=== PATIENT | female | born 1995 | race Caucasian/White ===

== ENCOUNTER 2024-07-25 09:43 | Observation (INO) ==
--- NOTE | 2024-07-25 09:58 | Emergency Department Note ---
Impression & Plan Transaminitis ADMIT ED Provider Note HPI: History obtained from patient. The patient is a 28-year-old female who presents the emergency department with a chief complaint of upper abdominal pain with nausea and vomiting that began at about 8 PM last night. Patient states she went out to a restaurant for dinner last night and shortly thereafter developed the symptoms. She states the pain is mostly in the epigastric and right upper quadrant area. Patient states he had multiple episodes of vomiting overnight and she was concerned about the possibility of a "gallbladder attack". On arrival here to the ED the patient is mildly tachycardic but otherwise hemodynamically stable, she appears to be in no acute distress on my initial assessment she is saturating well on room air. Patient states she does have right upper quadrant pain on arrival. ROS: - Per HPI Differential Diagnosis: Acute cholecystitis, choledocholithiasis, acute gastritis, acute pancreatitis, acute appendicitis, viral gastroenteritis, amongst other potential pathologies. *Outpatient medications and allergy history reviewed. PE: General: Alert HEENT: Normocephalic, trachea midline Eyes: Extraocular eye movement is intact, no scleral erythema Pulmonary: Clear to auscultation bilaterally, no wheezing Cardio: Regular rate and rhythm GI: Abdomen is soft to palpation : No suprapubic tenderness MSK: No evidence of trauma or malformation of the extremities, no edema Skin: No evidence of rash Neuro: Alert, no focal deficits Psychiatric: Cooperative INDEPENDENT INTERPRETATIONS: monitoring manager: (As interpreted by myself): - An order was placed for continuous cardiac monitoring - Patient was noted to be in sinus rhythm with a rate of 90 Interventions provided in ED: -IV morphine, IV Zofran, IV fluid bolus, IV Zosyn Medical Decision Making: IV was established and lab work obtained, patient was placed on media monitor. Lab work shows no leukocytosis, hemoglobin is normal, platelet count is normal, CMP does not show any evidence of any critical electrolyte abnormalities however there is a significant transaminitis with an elevated bilirubin at 3.3. CT imaging of the abdomen pelvis is suggestive of possible acute cholecystitis although recommendation was made for follow-up ultrasound imaging. No biliary ductal dilatation is noted on CT. I discussed the patient's presentation and CT imaging results with on-call general surgery, Abigail Damon PA-C, and recommendation was made for admission to the medicine service for further workup of transaminitis including MRCP and general surgery will be on consult. Case was then discussed with the on-call midlevel provider for the [facility] service, Karis Orona PA-C, and the patient was placed for admission to the [facility] service pending the results of MRCP. MRCP was obtained here in the ED and did not show any evidence of any obvious obstruction. Patient was therefore formally admitted to the medicine service at this time with general surgery consultation for further care. Patient remained stable while here in the ED, pain was improved following IV morphine and IV Zofran, she was in agreement to this plan and the patient was placed for admission in stable condition. Consultants/Discussions held with other healthcare providers: -General Surgery, Dr. Neyda Prabhakar -Hospitalist, Dr. Proctor Disposition discussion held by myself with: -Patient and patient's sister at the bedside Diagnosis: 1. Transaminitis, acute 2. Abdominal pain, acute 3. Hyperbilirubinemia, acute 4. Nausea and vomiting, acute Disposition: Admission Trae Banks DO Emergency Medicine Past Med/Surg History Problem List (Updated 07/25/24 @ 16:21 by Trae Banks DO) Transaminitis (Acute) Cholelithiasis Elevated LFTs Gallstones Constipation Encounter for pre-operative examination Medical History Anal fissure no surgical intervention History of Chiari malformation (~2015) Surgical History History of colonoscopy History of section x2 (10/2017, 08/2020) History of craniotomy (~2015) [facility] in 2016. Family History Other No family history of adverse response to anesthesia Social History Smoking Status: Current every day smoker Tobacco Type: E-cigarettes / Vaping Second Hand Exposure: No; Do You Dip or Chew Tobacco: No; Hx Alcohol Use: Yes Hx Substance Use: No Preferred Language: [place]an Communication Ability: Effective Sap Bi Developer Required: No Beliefs That Will Affect Care: None Current Living Situation: Spouse and Family Feels Safe at Home: Yes Assistive Devices: Contacts and Glasses Allergies Allergies Allergy/AdvReac Type Severity Reaction Status Date / Time No Known Allergies Allergy Verified 07/25/24 12:49 Home Meds Home Medications Medication Instructions Recorded Confirmed cholecalciferol (vitamin D3) 50 50 mcg PO DAILY 07/25/24 07/25/24 mcg (2,000 unit) tablet (Vitamin D3) magnesium glycinate 100 mg PO HS 07/25/24 07/25/24 vitamin K2 40 mcg tablet 40 mcg PO DAILY 07/25/24 07/25/24 Results & Data (ED) Vital Signs Vital Signs - 24 hr 07/25/24 09:45 07/25/24 10:20 07/25/24 10:21 Temperature 36.5 C Temperature Source Oral Pulse Rate 115 H Pulse Rate [Apical] 89 Pulse Rate from SpO2 Sensor Pulse Rhythm Regular Pulse Strength Normal Respiratory Rate 18 17 Respiratory Effort / Characteristics Non-Labored Respiratory Depth Normal Normal Respiratory Pattern Regular Blood Pressure 121/82 Blood Pressure [Left Arm] 119/94 Blood Pressure Mean 95 Blood Pressure Mean [Left Arm] 102 Blood Pressure Position Sitting Pulse Oximetry 99 98 99 Oxygen Delivery Method Room Air Room Air Room Air Sepsis Recent Fever Within 48 Hours Yes Sepsis New/Unexplained Change in Mental Status N/A Sepsis Action Taken by Nursing No Action Required 07/25/24 10:27 07/25/24 11:30 07/25/24 12:00 Temperature Temperature Source Pulse Rate 95 H Pulse Rate [Apical] Pulse Rate from SpO2 Sensor 88 94 H Pulse Rhythm Pulse Strength Respiratory Rate 18 Respiratory Effort / Characteristics Respiratory Depth Respiratory Pattern Blood Pressure 120/87 125/90 Blood Pressure [Left Arm] Blood Pressure Mean 98 97 Blood Pressure Mean [Left Arm] Blood Pressure Position Pulse Oximetry 100 100 Oxygen Delivery Method Sepsis Recent Fever Within 48 Hours Sepsis New/Unexplained Change in Mental Status Sepsis Action Taken by Nursing 07/25/24 13:53 07/25/24 14:25 07/25/24 14:30 Temperature Temperature Source Pulse Rate 92 H 82 87 Pulse Rate [Apical] Pulse Rate from SpO2 Sensor Pulse Rhythm Pulse Strength Respiratory Rate 27 H 22 Respiratory Effort / Characteristics Respiratory Depth Respiratory Pattern Blood Pressure 136/103 H 114/87 Blood Pressure [Left Arm] Blood Pressure Mean 116 91 Blood Pressure Mean [Left Arm] Blood Pressure Position Pulse Oximetry 99 99 Oxygen Delivery Method Sepsis Recent Fever Within 48 Hours Sepsis New/Unexplained Change in Mental Status Sepsis Action Taken by Nursing Laboratory Data 07/25/24 10:01 07/25/24 10:01 Lab Results 07/25/24 07/25/24 Range/Units 10:01 11:25 WBC 6.40 (4.8-10.8) K/ul RBC 5.26 (4.20-5.40) M/uL Hgb 15.3 (12.0-16.0) g/dl Hct 44.8 (37.0-47.0) % MCV 85.2 (80.0-100.0) fL MCH 29.1 (25.0-34.0) pg MCHC 34.2 (32.0-36.0) g/dL RDW Std Deviation 37.2 (36.4-46.3) fL RDW Coeff of Xavier 12.1 (11.5-14.5) % Plt Count 286 (130-400) K/uL MPV 9.8 (9.4-12.4) fL Immature Gran % (Auto) 0.3 % Neut % (Auto) 78.7 % Lymph % (Auto) 13.3 % [place] % (Auto) 7.2 % Eos % (Auto) 0.2 % Baso % (Auto) 0.3 % Neut # (Auto) 5.04 (1.40-6.50) K/uL Lymph # (Auto) 0.85 L (1.20-3.40) K/uL [place] # (Auto) 0.46 (0.11-0.59) K/uL Eos # (Auto) 0.01 (0.00-0.50) K/uL Baso # (Auto) 0.02 (0.00-0.20) K/uL Immature Gran # (Auto) 0.02 (0.01-0.20) K/uL Sodium 138 (136-145) mmol/L Potassium 3.7 (3.5-5.1) mmol/L Chloride 102 (98-107) mmol/L Carbon Dioxide 31 (21-32) mmol/L Anion Gap 5 (3-11) BUN 12 (6-23) mg/dl Creatinine 0.84 (0.6-1.2) mg/dl Est Cr Clr Drug Dosing 108.8 ml/min eGFR 96.41 BUN/Creatinine Ratio 14.3 (10-20) Glucose 97 (70-99(Fasting)) mg/dl Calcium 9.6 (8.6-10.3) mg/dl Magnesium 2.1 (1.7-2.4) mg/dl Total Bilirubin 3.3 H (0.2-1.0) mg/dl AST 1550 H (13-39) U/L ALT 1213 H (7-52) U/L Alkaline Phosphatase 134 H (34-104) U/L Total Protein 7.5 (6.0-8.3) gm/dl Albumin 4.8 (3.4-5.0) gm/dl Globulin 2.7 (2.5-4.0) gm/dl Albumin/Globulin Ratio 1.8 (0.9-2) Lipase 13 (11-82) U/L HCG, Qual Negative (Negative) Urine Color Dark Yellow Urine Appearance Clear (Clear) Urine pH 7.5 (4.5-7.5) Ur Specific [place] > 1.045 H (1.000-1.030) Urine Protein Negative (Negative) Urine Glucose (UA) Negative (Negative) Urine Ketones Negative (Negative) Urine Blood Negative (Negative) Urine Nitrite Negative (Negative) Urine Bilirubin Negative (Negative) Urine Urobilinogen Positive H (Negative) Ur Leukocyte Esterase Negative (Negative) Administered Medications Sodium Chloride (Nss) 1,000 mls @ 125 mls/hr IV .Q8H ANALIA Stop: 07/26/24 14:44 Last Admin: 07/25/24 14:55 Dose: 125 mls/hr Documented By: JACKY Discontinued Medications Sodium Chloride (Nss) 1,000 mls @ 999 mls/hr IV .Q1H1M STA Stop: 07/25/24 10:51 Last Infusion: 07/25/24 11:12 Dose: Infused Documented By: Admin: 07/25/24 10:08 Dose: 999 mls/hr Documented By: JACKY Piperacillin Sod/Tazobactam Sod (Zosyn) 4.5 gm in 100 mls @ 200 mls/hr IV NOW ONE; Protocol Stop: 07/25/24 12:21 Last Admin: 07/25/24 14:43 Dose: Not Given Documented By: JACKY Ioversol (Optiray 320 100ml) 94 ml IV ONCE ONE Stop: 07/25/24 11:11 Last Admin: 07/25/24 11:10 Dose: 94 ml Documented By: SYDNI Morphine Sulfate (Morphine Sulfate 4 Mg/Ml 1 Ml Carp\\Vial) 4 mg IV NOW STA Stop: 07/25/24 09:56 Last Admin: 07/25/24 10:09 Dose: 4 mg Documented By: JACKY Morphine Sulfate (Morphine Sulfate 4 Mg/Ml 1 Ml Carp\\Vial) 4 mg IV NOW STA Stop: 07/25/24 14:04 Last Admin: 07/25/24 14:52 Dose: 4 mg Documented By: JACKY Ondansetron HCl (Ondansetron Inj 2 Mg/Ml 2 Ml Vial) 4 mg IV NOW STA Stop: 07/25/24 09:56 Last Admin: 07/25/24 10:09 Dose: 4 mg Documented By: JACKY Imaging Data Radiologist's Impression: Abdomen/Pelvis CT 07/25/24 09:55 CT OF THE ABDOMEN AND PELVIS WITH CONTRAST CLINICAL HISTORY: RUQ PAIN, N/V COMPARISON STUDY: Renal ultrasound January 12, 2016. TECHNIQUE: Following IV administration of 94 mL of Optiray, axial images of the abdomen and pelvis were obtained from the lung bases to the proximal femurs. Images were reviewed in the axial, sagittal, and coronal planes. IV contrast was administered without complication. Automated exposure control was utilized for the study. A dose lowering technique was utilized adhering to the principles of ALARA. CT DOSE: 1163.09 mGy.cm FINDINGS: Lung bases are unremarkable. There is no pneumatosis, free air or portal venous gas. There are no hepatic lesions. There is no biliary or pancreatic ductal dilatation. The gallbladder is mildly distended. There is no pericholecystic infiltration. There are small gallstones within the gallbladder. The adrenal glands, spleen and pancreas are normal. There is no hydronephrosis. There are small radiodensities within the bilateral renal calyces. There are no ureteral calculi. There is no evidence for a bowel obstruction. The caliber and wall thickness of small and large bowel are normal. The appendix is normal. There is a dominant follicle within the left ovary. Major vasculature is patent. IMPRESSION: 1. A few tiny gallstones and mildly distended gallbladder. No pericholecystic infiltration. Right upper quadrant ultrasound is recommended to exclude acute cholecystitis. 2. Normal appendix. No bowel obstruction. No bowel wall thickening. 3. Tiny radiodensities within the bilateral renal calyces which favor nonobstructing calculi. Excreted contrast could appear similar. No ureteral calculi. No hydronephrosis. ACT 112: Negative or not required by law. Electronically signed by: Abdirashid Mullen M.D. 07/25/2024 11:41 AM Cholangiopancreatography MRI 07/25/24 11:52 MRCP CLINICAL HISTORY: Transaminitis. TECHNIQUE: Utilizing a 1.5 Anjali magnet and dedicated coil, multiplanar, multiecho imaging of the upper abdomen was performed utilizing heavily T2 weighted pulsing sequences without IV contrast. COMPARISON STUDY: Right upper quadrant ultrasound and CT of the abdomen and pelvis performed earlier today. FINDINGS: There is no intra or extrahepatic biliary ductal dilatation. The common bile duct measures 5 mm in caliber. No common bile duct calculi are identified. There are numerous gallstones within the gallbladder. The gallbladder is mildly distended. There is no gallbladder wall thickening or pericholecystic fluid. Caliber of the pancreatic duct is normal. There is no peripancreatic fluid or stranding. No hepatic lesions are identified on unenhanced exam. Spleen, adrenal glands and kidneys are unremarkable. There is no hydronephrosis. IMPRESSION: 1. No biliary ductal dilatation. No common bile duct calculi. 2. Numerous gallstones within the gallbladder. Mild gallbladder distention. No gallbladder wall thickening or pericholecystic stranding to strongly suggest acute cholecystitis. 3. No MRI evidence for pancreatitis. ACT 112: Negative or not required by law. Electronically signed by: Abdirashid Mullen M.D. 07/25/2024 1:57 PM Liver Ultrasound 07/25/24 11:53 US liver CLINICAL HISTORY: eval cholecystitis,elevated LFTs right upper quadrant pain; known gallstones COMPARISON STUDY: CT of the abdomen and pelvis same date FINDINGS: There are no pancreatic lesion is depicted. The liver measures 17.4 cm in cephalocaudal dimension. There are no focal liver lesions identified. There is no ascites. There is hepatopedal flow in the portal vein. The IVC is patent. There are numerous stones identified within the gallbladder. The gallbladder is not distended. There is no gallbladder wall thickening or pericholecystic fluid. There is no sonographic Bowman's sign reported. The common bile duct measures 4 mm. The right kidney is sonographically normal measuring 12.4 cm in long axis. There is no hydronephrosis. IMPRESSION: Cholelithiasis; no secondary findings that are strongly suggestive of cholecystitis. ACT 112: Negative or not required by law. Electronically signed by: Fani Esteban M.D. 07/25/2024 12:43 PM Discharge Plan Visit Data Chief Complaint: Abdominal Pain Stated Complaint: SHARP UPPER LT QUADRANT PAIN, NAUSEA, BACK TIGHT ED Provider: Trae Banks Discharge Problem: Transaminitis Forms Stand Alone Forms: [facility] Prescriptions Prescriptions: No Action cholecalciferol (vitamin D3) [Vitamin D3] 50 mcg (2,000 unit) Tablet 50 mcg PO DAILY vitamin K2 40 mcg Tablet 40 mcg PO DAILY magnesium glycinate 100 mg magnesium Capsule 100 mg PO HS Referrals Referrals: Art Hua [Primary Care Provider] -
[2024-07-25] MEDS: SODIUM CHLORIDE 0.9% 1,000 ML IV STA (10:08)
[2024-07-25] MEDS: ONDANSETRON INJ 2 MG/ML 2 ML VIAL IV STA (10:09)
[2024-07-25] MEDS: MoRPHine SULFATE 4 MG/ML 1 ML CARP\\VIAL IV STA ×2 (10:09→14:52)
[2024-07-25 10:27] LABS: Basophils # (auto) 0.02 K/uL (0.00-0.20); Basophils % (auto) 0.3 %; Eosinophils # (auto) 0.01 K/uL (0.00-0.50); Eosinophils % (auto) 0.2 %; Hematocrit (blood only) 44.8 % (37.0-47.0); Hemoglobin 15.3 g/dl (12.0-16.0); Immature Granulocytes # (auto) 0.02 K/uL (0.01-0.20); Immature Granulocytes % (auto) 0.3 %; Lymphocytes # (auto) 0.85 K/uL (1.20-3.40); Lymphocytes % (auto) 13.3 %; Mean Corpuscular Hemoglobin 29.1 pg (25.0-34.0); Mean Corpuscular Hgb Conc 34.2 g/dL (32.0-36.0); Mean Corpuscular Volume 85.2 fL (80.0-100.0); Mean Platelet Volume 9.8 fL (9.4-12.4); Monocytes # (auto) 0.46 K/uL (0.11-0.59); Monocytes % (auto) 7.2 %; Neutrophils # (auto) 5.04 K/uL (1.40-6.50); Neutrophils % (auto) 78.7 %; Platelet Count 286 K/uL (130-400); RDW Coefficient of Variation 12.1 % (11.5-14.5); RDW Standard Deviation 37.2 fL (36.4-46.3); Red Blood Count 5.26 M/uL (4.20-5.40)
[2024-07-25 10:42] LABS: Pregnancy Test, Serum Negative (Negative)
[2024-07-25 10:58] LABS: BUN Creatinine Ratio 14.3 (10-20); Calcium 9.6 mg/dl (8.6-10.3); Creatinine Clr Calc Pharmacy 108.8 ml/min; Potassium 3.7 mmol/L (3.5-5.1)
[2024-07-25] MEDS: OPTIRAY 320 100ml IV ONE (11:10)
[2024-07-25 11:19] LABS: Albumin Globulin Ratio 1.8 (0.9-2); Albumin Level 4.8 gm/dl (3.4-5.0); Bilirubin,Total 3.3 mg/dl (0.2-1.0); Globulin 2.7 gm/dl (2.5-4.0); Total Protein 7.5 gm/dl (6.0-8.3)
--- NOTE | 2024-07-25 11:43 | CT Scan Report ---
CT OF THE ABDOMEN AND PELVIS WITH CONTRAST CLINICAL HISTORY: RUQ PAIN, N/V COMPARISON STUDY: Renal ultrasound January 12, 2016. TECHNIQUE: Following IV administration of 94 mL of Optiray, axial images of the abdomen and pelvis we re obtained from the lung bases to the proximal femurs. Images were reviewed in the axial, sagittal, and coronal planes. IV contrast was administered without complication. Automated exposure control wa s utilized for the study. A dose lowering technique was utilized adhering to the principles of ALARA . CT DOSE: 1163.09 mGy.cm FINDINGS: Lung bases are unremarkable. There is no pneumatosis, free air or portal venous gas. There are no hepatic lesions. There is no biliary or pancreatic ductal dilatation. The gallbladder is mildl y distended. There is no pericholecystic infiltration. There are small gallstones within the gallblad esme. The adrenal glands, spleen and pancreas are normal. There is no hydronephrosis. There are small radiodensities within the bilateral renal calyces. There are no ureteral calculi. There is no evidenc e for a bowel obstruction. The caliber and wall thickness of small and large bowel are normal. The ap pendix is normal. There is a dominant follicle within the left ovary. Major vasculature is patent. IMPRESSION: 1. A few tiny gallstones and mildly distended gallbladder. No pericholecystic infiltration. Right upp er quadrant ultrasound is recommended to exclude acute cholecystitis. 2. Normal appendix. No bowel obstruction. No bowel wall thickening. 3. Tiny radiodensities within the bilateral renal calyces which favor nonobstructing calculi. Excrete d contrast could appear similar. No ureteral calculi. No hydronephrosis. ACT 112: Negative or not required by law. Electronically signed by: Abdirashid Mullen M.D. 07/25/2024 11:41 AM
[2024-07-25 11:54] LABS: Appearance Urine Clear (Clear); Bilirubin Urine Negative (Negative); Blood Urine Negative (Negative); Color Urine Dark Yellow; Glucose Urine UA Negative (Negative); Ketones Urine Negative (Negative); Leukocyte Esterase Urine Negative (Negative); Nitrite Urine Negative (Negative); Protein Urine Negative (Negative); Specific Gravity Urine > 1.045 (1.000-1.030); Urobilinogen Urine Positive (Negative); pH Urine 7.5 (4.5-7.5)
--- NOTE | 2024-07-25 12:17 | Surgery Consultation ---
Date of Consultation July 25, 2024 Assessment & Plan (1) Gallstones: This is a 28y F with PMH of x2 who presents to the [facility] ED on 07/25/24 with complaints of epigastric pain, nausea/vomiting, sweats. The patient states she has had several attacks similar to this (upwards of 7 times) over the last year since stopping Wegovy. She does experience these attacks it seems after eating fatty greasy foods such as chik sagrario, flakita cheese dip. This attack happened yesterday after she drove her father to an appointment in [place] and upon her return had dinner at [facility]. She promptly experienced the symptoms as above. Because she drove all day she did not want to then drive all the way to the ER for evaluation. She woke up this AM and got her kids ready for school and then came into the ER. She feels better, but still having discomfort and bloating. Her vomiting has subsided. In the ER she underwent a CT a/p that showed a few tiny gallstones and mildly distended gallbladder. No pericholecystic infiltration. Today in the ER blood work shows WBC 6, Hbg 15. with elevated liver enzymes of Tb: 3.3, AST 1550, ALT 1213, AlkP 134, lipase 13. Vital signs are stable. On exam patient is resting in no acute distress. Abdomen soft with mild discomfort at this time to palpation. There is concern for choledocholithiasis and it must be ruled out given the elevation in her liver enzymes. A RUQ US an MRCP have been ordered for further evaluation. If MRCP is positive then she will need to be transferred to a center where they have GI services available for ERCP. If it is negative than can consider admission under medicine with trending of LFTs and can consider cholecystectomy tomorrow if they are downtrending. We will follow. (2) Elevated LFTs: Supervising Physician Co-Signing Physician Notes I saw and examined this patient with the surgical PA in the ED. MRCP was performed and is (-). We will discuss potential surgical options with the patient but f/u am labs to trend LFTs. History of Present Illness History of Present Illness This is a 28y F with PMH of x2 who presents to the [facility] ED on 07/25/24 with complaints of epigastric pain, nausea/vomiting, sweats. The patient states she has had several attacks similar to this (upwards of 7 times) over the last year since stopping Wegovy. She does experience these attacks it seems after eating fatty greasy foods such as chik sagrario, flakita cheese dip. This attack happened yesterday after she drove her father to an appointment in [place] and upon her return had dinner at [facility]. She promptly experienced the symptoms as above. Because she drove all day she did not want to then drive all the way to the ER for evaluation. She woke up this AM and got her kids ready for school and then came into the ER. She feels better, but still having discomfort and bloating. Her vomiting has subsided. In the ER she underwent a CT a/p that showed a few tiny gallstones and mildly distended gallbladder. No pericholecystic infiltration. Right upper quadrant ultrasound is recommended to exclude acute cholecystitis. The patient states her pain is epigastric and radiates to the back and feels like a cinching sensation. Outside of c-sections she has no other abdominal surgical history. Allergies Allergy/AdvReac Type Severity Reaction Status Date / Time No Known Allergies Allergy Verified 07/25/24 12:49 Home Medications Medication Instructions Recorded Confirmed Type cholecalciferol (vitamin D3) 50 50 mcg PO DAILY 07/25/24 07/25/24 History mcg (2,000 unit) tablet (Vitamin D3) magnesium glycinate 100 mg PO HS 07/25/24 07/25/24 History vitamin K2 40 mcg tablet 40 mcg PO DAILY 07/25/24 07/25/24 History Patient History Medical History Anal fissure no surgical intervention History of Chiari malformation (~2015) Surgical History History of colonoscopy History of section x2 (10/2017, 08/2020) History of craniotomy (~2015) [facility] in 2015. Family History Other No family history of adverse response to anesthesia Social History Smoking Status: Current every day smoker Tobacco Type: E-cigarettes / Vaping Second Hand Exposure: No; Do You Dip or Chew Tobacco: No; Hx Alcohol Use: Yes Hx Substance Use: No Preferred Language: Belizean Communication Ability: Effective Mold Mover Required: No Beliefs That Will Affect Care: None Current Living Situation: Spouse and Family Feels Safe at Home: Yes Assistive Devices: Contacts and Glasses Review of Systems Constitutional: + sweats and + problem reported (clammy) Respiratory: no dyspnea Cardiovascular: no chest pain Gastrointestinal: + abdominal pain (epigastric), + bloatin g, + nausea and + vomiting Musculoskeletal: to the back Physical Exam Physical Exam: awake/alert, no distress Constitutional: well developed and well nourished; no acute distress Respiratory: normal respiratory effort Gastrointestinal (Abdomen): Inspection/Auscultation: + abdomen distended Percussion/Palpation: + abdomen tender (not overly tender to palpation; mild discomfort in upper abd) and abdomen soft Results & Data Vital Signs (Past 12 Hours) Vital Signs Temp Pulse Pulse Resp BP BP Pulse Ox 07/25/24 10:27 95 H 07/25/24 10:21 99 07/25/24 10:20 89 17 119/94 98 07/25/24 09:45 97.7 F 115 H 18 121/82 99 O2 Del Method 07/25/24 10:27 07/25/24 10:21 Room Air 07/25/24 10:20 Room Air 07/25/24 09:45 Room Air Diagnostic Findings CT OF THE ABDOMEN AND PELVIS WITH CONTRAST CLINICAL HISTORY: RUQ PAIN, N/V COMPARISON STUDY: Renal ultrasound January 12, 2016. TECHNIQUE: Following IV administration of 94 mL of Optiray, axial images of the abdomen and pelvis were obtained from the lung bases to the proximal femurs. Images were reviewed in the axial, sagittal, and coronal planes. IV contrast was administered without complication. Automated exposure control was utilized for the study. A dose lowering technique was utilized adhering to the principles of ALARA. CT DOSE: 1163.09 mGy.cm FINDINGS: Lung bases are unremarkable. There is no pneumatosis, free air or portal venous gas. There are no hepatic lesions. There is no biliary or pancreatic ductal dilatation. The gallbladder is mildly distended. There is no pericholecystic infiltration. There are small gallstones within the gallbladder. The adrenal glands, spleen and pancreas are normal. There is no hydronephrosis. There are small radiodensities within the bilateral renal calyces. There are no ureteral calculi. There is no evidence for a bowel obstruction. The caliber and wall thickness of small and large bowel are normal. The appendix is normal. There is a dominant follicle within the left ovary. Major vasculature is patent. IMPRESSION: 1. A few tiny gallstones and mildly distended gallbladder. No pericholecystic infiltration. Right upper quadrant ultrasound is recommended to exclude acute cholecystitis. 2. Normal appendix. No bowel obstruction. No bowel wall thickening. 3. Tiny radiodensities within the bilateral renal calyces which favor nonobstructing calculi. Excreted contrast could appear similar. No ureteral calculi. No hydronephrosis. ACT 112: Negative or not required by law. Electronically signed by: Abdirashid Mullen M.D. 07/25/2024 11:41 AM PG Care Time/CCT Total # of Minutes Spent Total Time Spent with Patient: Total time spent is greater than 50% in coordination of care (as documented) at patient's floor/unit and/or counseling patient: Coding Level of Care Code 35375 OFFICE CONSULT LVL M Diagnoses Gallstones K80.20 Elevated LFTs R79.89
--- NOTE | 2024-07-25 12:44 | Ultrasound Report ---
US liver CLINICAL HISTORY: eval cholecystitis,elevated LFTs right upper quadrant pain; known gallstones COMPARISON STUDY: CT of the abdomen and pelvis same date FINDINGS: There are no pancreatic lesion is depicted. The liver measures 17.4 cm in cephalocaudal dimension. There are no focal liver lesions identified. T here is no ascites. There is hepatopedal flow in the portal vein. The IVC is patent. There are numerous stones identified within the gallbladder. The gallbladder is not distended. There is no gallbladder wall thickening or pericholecystic fluid. There is no sonographic Bowman's sign rep orted. The common bile duct measures 4 mm. The right kidney is sonographically normal measuring 12.4 cm in long axis. There is no hydronephrosis . IMPRESSION: Cholelithiasis; no secondary findings that are strongly suggestive of cholecystitis. ACT 112: Negative or not required by law. Electronically signed by: Fani Esteban M.D. 07/25/2024 12:43 PM
--- NOTE | 2024-07-25 13:58 | Magnetic Resonance Report ---
MRCP CLINICAL HISTORY: Transaminitis. TECHNIQUE: Utilizing a 1.5 Anjali magnet and dedicated coil, multiplanar, multiecho imaging of the [facility] abdomen was performed utilizing heavily T2 weighted pulsing sequences without IV contrast. COMPARISON STUDY: Right upper quadrant ultrasound and CT of the abdomen and pelvis performed earlier today. FINDINGS: There is no intra or extrahepatic biliary ductal dilatation. The common bile duct measures 5 mm in caliber. No common bile duct calculi are identified. There are numerous gallstones within the gallbladder. The gallbladder is mildly distended. There is no gallbladder wall thickening or pericho lecystic fluid. Caliber of the pancreatic duct is normal. There is no peripancreatic fluid or strandi ng. No hepatic lesions are identified on unenhanced exam. Spleen, adrenal glands and kidneys are unre markable. There is no hydronephrosis. IMPRESSION: 1. No biliary ductal dilatation. No common bile duct calculi. 2. Numerous gallstones within the gallbladder. Mild gallbladder distention. No gallbladder wall thick ening or pericholecystic stranding to strongly suggest acute cholecystitis. 3. No MRI evidence for pancreatitis. ACT 112: Negative or not required by law. Electronically signed by: Abdirashid Mullen M.D. 07/25/2024 1:57 PM
--- NOTE | 2024-07-25 14:30 | History & Physical Report ---
<Statement entered by Felix Nolasco, DO - 07/25/24 15:03> I have seen and examined the patient and have discussed the case with the advance practice provider. I have reviewed the advanced practitioner's documentation, and I agree with, and take responsibility for that plan of care. Patient reports feeling significantly improved compared to last night or even earlier today. Still feels though somewhat inflamed in her abdomen. Interestingly, patient has recently used Wegovy, known to cause cholelithiasis as an adverse effect. Abdomen soft, minimal right upper quadrant tenderness, no guarding, no rigidity, no Bowman's Discussed plan of care as outlined below I spent a total of 15 minutes coordinating, documenting, and providing care for this patient excluding time spent by another provider/QHP. Date of Service July 25, 2024 Assessment & Plan (1) Cholelithiasis: (2) Elevated LFTs: Plan: This is a 28 yr old otherwise healthy female presenting with RUQ Abd pain/fullness that is radiating to her back that started 1 day ago after eating a fatty meal. Had similar episodes 7 x this past year. --MRCP:No biliary ductal dilatation. No common bile duct calculi.2. Numerous gallstones within the gallbladder. Mild gallbladder distention. No gallbladder wall thickening or pericholecystic stranding to strongly suggest acute cholecystitis. 3. No MRI evidence for pancreatitis. --US: Cholelithiasis; no secondary findings that are strongly suggestive of cholecystitis. AST 1550 U/L, ALT 1213 U/L, Alk Phos 134 U/L and total bili 3.3 No evidence of obstruction on MRCP, possible passed stone/sludge admit to medical Discussed case with General surgery Abigail Damon, if LFT downtrending likely plan cholecystectomy tomorrow Empiric IV antibiotics with Zosyn, IVF 125cc/hr Keep NPO for now IV toradol mild pain, IV Dilaudid moderate pain If LFTS not improving by tomorrow would recommend further work up with acute hep panel and r/o other etiology of transaminitis, but this clinically appears consistent with gallbladder dysfunction/cholelithiasis DVT ppx: encourage ambulation FULL CODE PCP: Marleen Lang PA-C Dispo: admit I spent a total of 60 minutes coordinating, documenting and providing care for this patient excluding time spent in the performance of separately billed services or time spent by another provider/QHP. Pt was seen and examined in collaboration with Dr. Nolasco, please see addendum History of Present Illness Chief Complaint: Abdominal pain x 1 day. Primary Care Provider: Art Hua This is a Healthy 28 yr old F who has no significant PMH who presents to ED with epigastic/RUQ pain x 1 day. 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 Shortly after eating her meal she developed epigastric pain radiating to her back, RUQ fullness, nausea and vomiting. She didn't come to the ER last night due to driving all day so she presented this morning. She reports this is her 7th episode in the last year. She previously has been on wegovy and lost a ton of weight. After stopping Wegovy she developed this symptoms along with palpitations and shaking. She continues to feel RUQ fullness and pressure, but feels her pain has improved. SHe is passing gas, but she has not moved her bowels in a few days. Initially she thought maybe she was constipated so she tried drinking milk of mag walking through [employer] last night. She then thought maybe she had the stomach flu. In ED Patient's lab work revealed a significant transaminitis with an AST of [id number] and ALT of 1213, total bili of 3.3 and alk phos of 134. CT scan of abdomen pelvis revealed gallstones but no definitive gallbladder wall thickening or pericholecystic fluid. She underwent right upper quadrant ultrasound and MRCP which was negative for CBD stone but did reveal several gallstones. Allergies Allergy/AdvReac Type Severity Reaction Status Date / Time No Known Allergies Allergy Verified 07/25/24 12:49 Home Medications Medication Instructions Recorded Confirmed Type cholecalciferol (vitamin D3) 50 50 mcg PO DAILY 07/25/24 07/25/24 History mcg (2,000 unit) tablet (Vitamin D3) magnesium glycinate 100 mg PO HS 07/25/24 07/25/24 History vitamin K2 40 mcg tablet 40 mcg PO DAILY 07/25/24 07/25/24 History Past Med/Surg History Problem List (Updated 07/25/24 @ 14:44 by Angie Orona PA-C) Cholelithiasis Elevated LFTs Gallstones Constipation Encounter for pre-operative examination Medical History Anal fissure no surgical intervention History of Chiari malformation (~2015) Surgical History History of colonoscopy History of section x2 (10/2017, 08/2020) History of craniotomy (~2015) [facility] in 2016. Family History Other No family history of adverse response to anesthesia Social History Smoking Status: Current every day smoker Tobacco Type: E-cigarettes / Vaping Second Hand Exposure: No; Do You Dip or Chew Tobacco: No; Hx Alcohol Use: Yes Hx Substance Use: No Preferred Language: Polish Communication Ability: Effective Tribal Delegate Required: No Beliefs That Will Affect Care: None Current Living Situation: Spouse and Family Feels Safe at Home: Yes Assistive Devices: Contacts and Glasses Review of Systems Review of Systems: All systems reviewed & are unremarkable except as noted in HPI & below Physical Exam Physical Exam: Constitutional: WD/WN, vitals as above, NAD, sitting up in bed, pleasant, conversing easily Head: Normocephalic, Atraumatic Eyes: PERRL, conjunctivae normal, anicteric sclerae ENMT: external ear and nose normal, oropharynx normal Neck: trachea midline, no thyromegaly normal visual inspection Respiratory: normal respiratory effort, lungs clear to auscultation, no wheeze, rales, rhonchi. Normal insp/exp effort, no accessory muscle use Cardiovascular: RRR, no murmur, no edema Vessels: no JVD or carotid bruit Chest: normal inspection of chest Abdomen: normal bowel sounds, soft, TTP RUQ, no hepatosplenomegaly Musculoskeletal: AROM x 4 Skin: no rashes, warm and dry normal turgor Neurologic: no face palsy, no dysarthria CN's II-XI intact bilaterally and moves all extremities Psychiatric: A+Ox3, euthymic affect Lymphatic: no cervical or axillary lymphadenopathy : deferred Results & Data Results & Data Vital Signs (Past 12 Hours) Vital Signs Temp Pulse Pulse Resp BP BP Pulse Ox 07/25/24 14:25 82 07/25/24 12:00 125/90 100 07/25/24 11:30 18 120/87 100 07/25/24 10:27 95 H 07/25/24 10:21 99 07/25/24 10:20 89 17 119/94 98 07/25/24 09:45 36.5 C 115 H 18 121/82 99 O2 Del Method 07/25/24 14:25 07/25/24 12:00 07/25/24 11:30 07/25/24 10:27 07/25/24 10:21 Room Air 07/25/24 10:20 Room Air 07/25/24 09:45 Room Air Laboratory Results I have independently reviewed and interpreted patient's admitting labs including CBC, CMP, UA, Lipase, HCG Diagnostic Findings Abdomen/Pelvis CT 07/25/24 09:55 CT OF THE ABDOMEN AND PELVIS WITH CONTRAST CLINICAL HISTORY: RUQ PAIN, N/V COMPARISON STUDY: Renal ultrasound January 12, 2016. TECHNIQUE: Following IV administration of 94 mL of Optiray, axial images of the abdomen and pelvis were obtained from the lung bases to the proximal femurs. Images were reviewed in the axial, sagittal, and coronal planes. IV contrast was administered without complication. Automated exposure control was utilized for the study. A dose lowering technique was utilized adhering to the principles of ALARA. CT DOSE: 1163.09 mGy.cm FINDINGS: Lung bases are unremarkable. There is no pneumatosis, free air or portal venous gas. There are no hepatic lesions. There is no biliary or pancreatic ductal dilatation. The gallbladder is mildly distended. There is no pericholecystic infiltration. There are small gallstones within the gallbladder. The adrenal glands, spleen and pancreas are normal. There is no hydronephrosis. There are small radiodensities within the bilateral renal calyces. There are no ureteral calculi. There is no evidence for a bowel obstruction. The caliber and wall thickness of small and large bowel are normal. The appendix is normal. There is a dominant follicle within the left ovary. Major vasculature is patent. IMPRESSION: 1. A few tiny gallstones and mildly distended gallbladder. No pericholecystic infiltration. Right upper quadrant ultrasound is recommended to exclude acute cholecystitis. 2. Normal appendix. No bowel obstruction. No bowel wall thickening. 3. Tiny radiodensities within the bilateral renal calyces which favor nonobstructing calculi. Excreted contrast could appear similar. No ureteral calculi. No hydronephrosis. ACT 112: Negative or not required by law. Electronically signed by: Abdirashid Mullen M.D. 07/25/2024 11:41 AM Cholangiopancreatography MRI 07/25/24 11:52 MRCP CLINICAL HISTORY: Transaminitis. TECHNIQUE: Utilizing a 1.5 Anjali magnet and dedicated coil, multiplanar, multiecho imaging of the upper abdomen was performed utilizing heavily T2 weighted pulsing sequences without IV contrast. COMPARISON STUDY: Right upper quadrant ultrasound and CT of the abdomen and pelvis performed earlier today. FINDINGS: There is no intra or extrahepatic biliary ductal dilatation. The common bile duct measures 5 mm in caliber. No common bile duct calculi are identified. There are numerous gallstones within the gallbladder. The gallbladder is mildly distended. There is no gallbladder wall thickening or pericholecystic fluid. Caliber of the pancreatic duct is normal. There is no peripancreatic fluid or stranding. No hepatic lesions are identified on unenhanced exam. Spleen, adrenal glands and kidneys are unremarkable. There is no hydronephrosis. IMPRESSION: 1. No biliary ductal dilatation. No common bile duct calculi. 2. Numerous gallstones within the gallbladder. Mild gallbladder distention. No gallbladder wall thickening or pericholecystic stranding to strongly suggest acute cholecystitis. 3. No MRI evidence for pancreatitis. ACT 112: Negative or not required by law. Electronically signed by: Abdirashid Mullen M.D. 07/25/2024 1:57 PM Liver Ultrasound 07/25/24 11:53 US liver CLINICAL HISTORY: eval cholecystitis,elevated LFTs right upper quadrant pain; known gallstones COMPARISON STUDY: CT of the abdomen and pelvis same date FINDINGS: There are no pancreatic lesion is depicted. The liver measures 17.4 cm in cephalocaudal dimension. There are no focal liver lesions identified. There is no ascites. There is hepatopedal flow in the portal vein. The IVC is patent. There are numerous stones identified within the gallbladder. The gallbladder is not distended. There is no gallbladder wall thickening or pericholecystic fluid. There is no sonographic Bowman's sign reported. The common bile duct measures 4 mm. The right kidney is sonographically normal measuring 12.4 cm in long axis. There is no hydronephrosis. IMPRESSION: Cholelithiasis; no secondary findings that are strongly suggestive of cholecystitis. ACT 112: Negative or not required by law. Electronically signed by: Fani Esteban M.D. 07/25/2024 12:43 PM Medications Administered Medication List Discontinued Medications Sodium Chloride (Nss) 1,000 mls @ 999 mls/hr IV .Q1H1M STA Stop: 07/25/24 10:51 Last Infusion: 07/25/24 11:12 Dose: Infused Documented By: Admin: 07/25/24 10:08 Dose: 999 mls/hr Documented By: JACKY Ioversol (Optiray 320 100ml) 94 ml IV ONCE ONE Stop: 07/25/24 11:11 Last Admin: 07/25/24 11:10 Dose: 94 ml Documented By: SYDNI Morphine Sulfate (Morphine Sulfate 4 Mg/Ml 1 Ml Carp\Vial) 4 mg IV NOW STA Stop: 07/25/24 09:56 Last Admin: 07/25/24 10:09 Dose: 4 mg Documented By: JACKY Ondansetron HCl (Ondansetron Inj 2 Mg/Ml 2 Ml Vial) 4 mg IV NOW STA Stop: 07/25/24 09:56 Last Admin: 07/25/24 10:09 Dose: 4 mg Documented By: JACKY COVID- Results Results COVID-19 Adm Lab Results: RBC 5.26 M/uL (4.20-5.40) 07/25/24 WBC 6.40 K/ul (4.8-10.8) 07/25/24 Hgb 15.3 g/dl (12.0-16.0) 07/25/24 Hct 44.8 % (37.0-47.0) 07/25/24 Plt Count 286 K/uL (130-400) 07/25/24 Neutrophils (%) (Auto) 78.7 % 07/25/24 Lymphocytes (%) (Auto) 13.3 % 07/25/24 Monocytes # (Auto) 0.46 K/uL (0.11-0.59) 07/25/24 Eosinophils # (Auto) 0.01 K/uL (0.00-0.50) 07/25/24 Immature Granulocyte % (Auto) 0.3 % 07/25/24 Neutrophils # (Auto) 5.04 K/uL (1.40-6.50) 07/25/24 Lymphocytes # (Auto) 0.85 K/uL (1.20-3.40) L 07/25/24 Monocytes # (Auto) 0.46 K/uL (0.11-0.59) 07/25/24 Eosinophils # (Auto) 0.01 K/uL (0.00-0.50) 07/25/24 Basophils # (Auto) 0.02 K/uL (0.00-0.20) 07/25/24 Immature Granulocyte # (Auto) 0.02 K/uL (0.01-0.20) 5 Na 138 mmol/L (136-145) 07/25/24 K 3.7 mmol/L (3.5-5.1) 07/25/24 Cl 102 mmol/L (98-107) 07/25/24 CO2 31 mmol/L (21-32) 07/25/24 Anion Gap 5 (3-11) 07/25/24 BUN 12 mg/dl (6-23) 07/25/24 Creatinine 0.84 mg/dl (0.6-1.2) 07/25/24 BUN/Creatinine Ratio 14.3 (10-20) 07/25/24 Glucose Level 97 mg/dl (70-99(Fasting)) 07/25/24 Ca 9.6 mg/dl (8.6-10.3) 07/25/24 Total Bilirubin 3.3 mg/dl (0.2-1.0) H 07/25/24 AST/SGOT 1550 U/L (13-39) H 07/25/24 ALT/SGPT 1213 U/L (7-52) H 07/25/24 Alkaline Phosphatase 134 U/L (34-104) H 07/25/24 Total Protein 7.5 gm/dl (6.0-8.3) 07/25/24 Albumin 4.8 gm/dl (3.4-5.0) 07/25/24 Globulin 2.7 gm/dl (2.5-4.0) 07/25/24 Albumin/Globulin Ratio 1.8 (0.9-2) 07/25/24 Code Status & VTE Plan Code Status FULL CODE VTE Prophylaxis Plan VTE Prophylaxis will be ordered: No
[2024-07-25] MEDS: PIPERACILLIN/TAZOBACTAM 4.5 GM/100 ML BAG IV ONE (14:43)
[2024-07-25 14:52] LABS: Magnesium 2.1 mg/dl (1.7-2.4)
[2024-07-25] MEDS: SODIUM CHLORIDE 0.9% 1,000 ML IV SCH (14:55)
[2024-07-25] MEDS ORDERED: ACETAMINOPHEN 325 MG TAB PO PRN (17:54)
[2024-07-25] MEDS ORDERED: FAMOTIDINE 20 MG TAB PO PRN (17:54)
[2024-07-25] MEDS ORDERED: DOCUSATE SODIUM 100 MG CAP PO PRN (17:54)
[2024-07-25] MEDS: 4.5GM X1 IV STA (18:47)
[2024-07-25] MEDS ORDERED: MELATONIN 3 MG TAB PO PRN (21:00)
[2024-07-25] MEDS: KETOROLAC TROMETHAMINE 15 MG/ML VIAL IV PRN (21:47)
[2024-07-25] MEDS: HYDROmorphone INJ 0.5 MG/0.5 ML SYR IV PRN (22:36)
[2024-07-25] MEDS: PIPERACILLIN/TAZOBACTAM 4.5 GM/100 ML BAG IV SCH (22:41)
[2024-07-26 08:20] LABS: Basophils # (auto) 0.03 K/uL (0.00-0.20); Basophils % (auto) 0.6 %; Eosinophils # (auto) 0.06 K/uL (0.00-0.50); Eosinophils % (auto) 1.3 %; Hematocrit (blood only) 35.9 % (37.0-47.0); Immature Granulocytes # (auto) 0.01 K/uL (0.01-0.20); Immature Granulocytes % (auto) 0.2 %; Lymphocytes # (auto) 1.11 K/uL (1.20-3.40); Lymphocytes % (auto) 23.9 %; Mean Corpuscular Hemoglobin 29.2 pg (25.0-34.0); Mean Corpuscular Hgb Conc 33.4 g/dL (32.0-36.0); Mean Corpuscular Volume 87.3 fL (80.0-100.0); Mean Platelet Volume 10.1 fL (9.4-12.4); Monocytes % (auto) 6.5 %; Neutrophils # (auto) 3.13 K/uL (1.40-6.50); Neutrophils % (auto) 67.5 %; Platelet Count 220 K/uL (130-400); RDW Coefficient of Variation 12.4 % (11.5-14.5); RDW Standard Deviation 39.7 fL (36.4-46.3); Red Blood Count 4.11 M/uL (4.20-5.40); White Blood Count 4.64 K/ul (4.8-10.8)
[2024-07-26 08:38] LABS: Albumin Globulin Ratio 1.7 (0.9-2); Albumin Level 3.5 gm/dl (3.4-5.0); BUN Creatinine Ratio 17.1 (10-20); Bilirubin,Total 2.5 mg/dl (0.2-1.0); Calcium 8.4 mg/dl (8.6-10.3); Creatinine Clr Calc Pharmacy 110.8 ml/min; Globulin 2.1 gm/dl (2.5-4.0); Potassium 3.7 mmol/L (3.5-5.1); Total Protein 5.6 gm/dl (6.0-8.3)
--- NOTE | 2024-07-26 11:32 | Hospitalist Progress Note ---
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 Had similar episodes 7 x this past year. Admitting imagings: --MRCP:No biliary ductal dilatation. No common bile duct calculi.2. Numerous gallstones within the gallbladder. Mild gallbladder distention. No gallbladder wall thickening or pericholecystic stranding to strongly suggest acute cholecystitis. 3. No MRI evidence for pancreatitis. --US: Cholelithiasis; no secondary findings that are strongly suggestive of cholecystitis. She is being managed for the following: Transaminitis Cholelithiasis GB colic Admitting imagings, see above. HCG neg. Admitting LFT: AST 1550 U/L, ALT 1213 U/L, Alk Phos 134 U/L and total bili 3.3 No evidence of obstruction on MRCP, possible passed stone/sludge. LFT elevation iso cholelithiasis/acute gb colic Plan for cholecystectomy today, gen sx on board. LFT trending down, repeat LFT in AM. Send hepatitis panel NPO, c/w empiric iv atb for now, c/w ivf Pain control, nausea control. Follow admitting blood culture. DVT ppx: encourage ambulation FULL CODE PCP: Marleen Lang PA-C Dispo: DC in next 1-2 days. Admission and Anticipated Discharge Date Admission Date: July 25, 2024 Subjective Patient was seen and examined at bedside. Patient was lying in bed, on room air, NAD, resting comfortably. Patient reports nausea, some mild belly pain. Patient denies vomiting. Patient is n.p.o. for surgery today. Patient denies fever/sore throat/cough. Physical Exam Physical Exam: GENERAL: Alert and oriented x3. NAD, on RA. HEENT: No pallor, no icterus. Pupils equal, round and reactive to light. Oral mucosa moist. NECK: No JVD, no neck masses. HEART: S1 and S2 heard. Regular rate and rhythm. No murmur, no gallop. RESPIRATORY SYSTEM: Normal AP diameter. No accessory muscle use. No wheezing, no crackles. ABDOMEN: Soft, bowel sounds present, RUQ tender, no distention. CENTRAL NERVOUS SYSTEM: No facial droop. Speech is clear. Obeys simple commands. Moves extremities. EXTREMITIES: No edema, no erythema seen. Results & Data Results & Data Vital Signs (Past 12 Hours) Vital Signs Temp Pulse Resp BP Pulse Ox O2 Del Method 07/26/24 10:49 36.7 C 77 14 104/70 97 Room Air 07/26/24 07:22 36.9 C 73 16 102/67 98 Room Air
[2024-07-26] MEDS: ONDANSETRON INJ 2 MG/ML 2 ML VIAL IV PRN (13:34)
[2024-07-26] MEDS: ONDANSETRON INJ 2 MG/ML 2 ML VIAL IV STA (13:34)
[2024-07-26] MEDS ORDERED: ATROPINE SULFATE 0.1 MG/ML 10ML SYR IV PRN (13:40)
[2024-07-26] MEDS ORDERED: ePHEDrine sulfate 50 MG/ML AMP IV PRN (13:40)
[2024-07-26] MEDS ORDERED: PROMETHAZINE HCL 6.25 MG in SODIUM CHLORIDE 0.9% 50 ML IV PRN (13:40)
[2024-07-26] MEDS ORDERED: fentaNYL citrate PF 100 MCG/2 ML VIAL ONE ×2 (13:58→15:44)
[2024-07-26] MEDS ORDERED: MIDAZOLAM HCL 1 MG/ML 2ML VIAL ONE (13:58)
[2024-07-26] MEDS ORDERED: LIDOCAINE 2% 2 ML VIAL/AMP(20MG/ML) INFIL ONE (14:42)
[2024-07-26] MEDS ORDERED: DEXAMETHASONE SOD INJ 4 MG/ML VIAL ONE (14:42)
[2024-07-26] MEDS ORDERED: ONDANSETRON INJ 2 MG/ML 2 ML VIAL ONE (14:42)
[2024-07-26] MEDS ORDERED: ROCURONIUM BROMIDE 10 MG/ML 5 ML VIAL IV ONE (14:42)
[2024-07-26] MEDS ORDERED: PROPOFOL IV EMULSION 10 MG/ML 20 ML VIAL IV ONE (14:42)
[2024-07-26] MEDS ORDERED: ACETAMINOPHEN 1000 MG/100 ML IV IV ONE (14:45)
--- NOTE | 2024-07-26 15:07 | History & Physical Bridge Note ---
Date of Service July 26, 2024 History & Physical Bridge Note I have examined the patient, reviewed the History & Physical and in the interval since the performance of the History & Physical I have noted the following changes of clinical significance: no changes noted. Genevieve will be taken for a laparoscopic cholecystectomy. Consent has been obtained and is on the chart
[2024-07-26] MEDS ORDERED: SUGAMMADEX SODIUM 200 MG/2 ML VIAL IV ONE (15:15)
[2024-07-26] MEDS ORDERED: SUCCINYLCHOLINE CHLORIDE 20 MG/ML 10 ML VIAL IV ONE (15:15)
[2024-07-26] MEDS ORDERED: KETOROLAC 30 MG/ML VIAL ONE (16:37)
[2024-07-26] MEDS: BUPIVACAINE 0.5 % 5 MG/1 ML MPF 30ML VIAL ONE (16:46)
--- NOTE | 2024-07-26 17:03 | Operative Report ---
PG Post Operative Report Pre & Post Diagnosis Operation Date: 07/26/24 11:25 Pre-Op Diagnosis: Gallstones Post-Op Diagnosis: Gallstones I identified the patient and participated in the time-out.: Yes Procedure Operation Date: 07/26/24 11:25 Actual Procedures p Robotic Laparoscopic Cholecystectomy(Not Applicable) - Deborah Prabhakar DO Surgeon Deborah Jeffers DO [employer] VALDO [place] Estimated Blood Loss 10 Findings See Below Edematous gallbladder with evidence for acute cholecystitis. Specimens Gallbladder Anesthesia Type General Complications None Indications Persistent RUQ pain, US with gallstones and now has elevated LFTs Description of Procedure The patient was brought back to the operating room and placed on the operating room table in supine position. She was connected to cardiac and oxygen monitoring, supplemental O2 was provided and SCDs were applied to b/l LE. The patient was administered general anesthesia and a secure airway was established. The abdomen was prepped and draped in typical sterile fashion and a timeout was conducted. Local anesthetic was used anesthetize skin and subcutaneous tissues prior to making all incisions and all incisions were made with an 11 blade. Intra-abdominal access was gained using a Veress needle at the supraumbilical region and this was confirmed with saline drop test. CO2 insufflation was initi ated and pneumoperitoneum was established local pressure 15 mmHg. Once this pressure was reached, an 8 mm robotic trocar was inserted using direct visualization with a 5 mm laparoscope. 2 additional robotic trocars were inserted at the left upper right upper quadrants. A 5 mm laparoscopic surgical first assistant trocar was inserted the far right upper quadrant. The operating room table was positioned in reverse Trendelenburg and left side down. The robot was deployed, docked, targeted and instruments were loaded. At the console the gallbladder was visualized grasped by the surgical first assistant at the fundus. And retracted superiorly. The cystic triangle was dissected to clearly expose the cystic duct and cystic artery. Each of these structures was ligated using 2 hemoclips proximally and 1 distally. Each was then transected using cutting energy. The gallbladder was then removed from the liver bed using alternating blunt and cauterized dissection. Bleeding along the way was controlled using the cautery. The gallbladder was then placed in an Endo Catch bag and removed from the right upper quadrant robotic 8 mm port. This port site did not need to be widened to remove the gallbladder. The liver bed was then inspected for bleeding. Many areas of oozing were controlled with cautery. The area was irrigated multiple times and suctioned to be sure that hemostasis was completely achieved. The instruments were removed, CO2 insufflation was discontinued and the OR table was returned to the neutral position. I scrubbed back into the case to assist with evacuating excess pneumoperitoneum from the abdomen. The trocars were then removed. The incisions were all approximated using 4-0 Monocryl suture. The abdomen was wiped clean with a saline soaked lap pad and dried. Dermabond was applied to the incisions. The patient tolerated procedure well. She was awakened from anesthesia, the secure airway was removed and she was transferred to recovery in stable condition. I attest to the content of the Intraoperative Record and any orders documented therein. Any exceptions are noted below.
[2024-07-26] MEDS: fentaNYL citrate PF 100 MCG/2 ML VIAL IV PRN (17:10)
[2024-07-26] MEDS: FAMOTIDINE/PF 20 MG/2 ML VIAL IV ONE (17:49)
--- NOTE | 2024-07-26 17:56 | Anesthesiology Progress Note ---
Date of Service July 26, 2024 Anesthesia Post Procedure Vital Signs Vital Signs: Temp Pulse Pulse Resp BP Pulse Ox O2 Del Method 07/26/24 17:40 37.4 C 77 17 113/73 96 Room Air 07/26/24 17:30 70 14 107/67 98 Oxymask 07/26/24 17:20 74 13 106/68 98 Oxymask 07/26/24 17:10 83 20 112/82 95 Oxymask 07/26/24 17:00 36.2 C L 98 H 18 128/81 95 Oxymask 07/26/24 13:24 36.9 C 72 18 116/76 99 Room Air 07/26/24 10:49 36.7 C 77 14 104/70 97 Room Air 07/26/24 07:22 36.9 C 73 16 102/67 98 Room Air 07/25/24 22:00 Room Air 07/25/24 22:00 37 C 80 19 113/75 97 Room Air 07/25/24 22:00 37 C 80 19 113/75 97 Room Air O2 Flow Rate 07/26/24 17:40 07/26/24 17:30 2 07/26/24 17:20 4 07/26/24 17:10 4 07/26/24 17:00 6 07/26/24 13:24 07/26/24 10:49 07/26/24 07:22 07/25/24 22:00 07/25/24 22:00 07/25/24 22:00 Pain Intensity Abdomen: Pain Intensity: 4 Transfer of Care Handoff Completed per policy Notes Mental Status: alert / awake / arousable and participated in evaluation Patient Amnestic to Procedure: Yes Nausea / Vomiting: adequately controlled Pain: adequately controlled Airway Patency, RR, SpO2: stable & adequate BP & HR: stable & adequate Hydration State: stable & adequate Anesthetic Complications: no major complications apparent and Pt Satisfied with anesthetic care
[2024-07-26] MEDS ORDERED: oxyCODONE HCL IR 5 MG TAB (IMMEDIATE RELEASE) PO PRN (18:00)
[2024-07-26] MEDS: HYDROmorphone INJ 0.5 MG/0.5 ML SYR IV PRN (20:19)
[2024-07-26 21:18] VITALS: RESP 16
[2024-07-27] MEDS: oxyCODONE HCL IR 5 MG TAB (IMMEDIATE RELEASE) PO PRN (00:12)
[2024-07-27] MEDS: HYDROmorphone INJ 1 MG/ML SYRINGE IV PRN (02:45)
[2024-07-27 06:56] VITALS: BP 115/76; TEMP 98.4; O2SAT 97
[2024-07-27 07:19] LABS: Mean Corpuscular Hemoglobin 29.3 pg (25.0-34.0); Mean Corpuscular Hgb Conc 34.3 g/dL (32.0-36.0); Mean Corpuscular Volume 85.4 fL (80.0-100.0); Mean Platelet Volume 10.2 fL (9.4-12.4); Platelet Count 250 K/uL (130-400); RDW Coefficient of Variation 12.1 % (11.5-14.5); RDW Standard Deviation 38.2 fL (36.4-46.3); White Blood Count 10.78 K/ul (4.8-10.8)
[2024-07-27 07:39] LABS: Albumin Globulin Ratio 1.6 (0.9-2); Albumin Level 3.5 gm/dl (3.4-5.0); BUN Creatinine Ratio 15.8 (10-20); Calcium 8.6 mg/dl (8.6-10.3); Creatinine Clr Calc Pharmacy 95.6 ml/min; Globulin 2.2 gm/dl (2.5-4.0); Magnesium 1.9 mg/dl (1.7-2.4); Phosphorus 3.4 mg/dl (2.5-4.9); Potassium 3.9 mmol/L (3.5-5.1); Total Protein 5.7 gm/dl (6.0-8.3)
[2024-07-27 09:28] LABS: Hep B Surface Ag with confirm Negative (Negative)
[2024-07-27 09:33] LABS: Hep C Ab Rflx HepCQuant RNA Negative (Negative)
--- NOTE | 2024-07-27 11:10 | Surgery Progress Note ---
<Statement entered by Deborah Jeffers DO - 07/27/24 11:45> I have seen and examined this patient this am with the surgical team and I agree with this plan Date of Service July 27, 2024 Assessment & Plan (1) S/P laparoscopic cholecystectomy: Plan: POD#1 robotic cholecystectomy vitals are stable. wbc 10, hbg 14, LFTs continue to downtrend patient on regular diet, prn pain meds from our standpoint she is stable for discharge to home. no need for further abx d/c instructions reviewed, f/u in the office within 1-2 weeks Admission and Anticipated Discharge Date Admission Date: July 25, 2024 Subjective patient is doing well after surgery. no major complaints Physical Exam Physical Exam: awake/alert no distress Gastrointestinal (Abdomen): surgical wounds with dermabond. expected suly incisional discomfort Results & Data Vital Signs (Past 12 Hours) Vital Signs Temp Pulse Resp BP Pulse Ox O2 Del Method 07/27/24 08:13 Room Air 07/27/24 06:54 98.4 F 74 16 115/76 97 Room Air 07/27/24 04:14 97.9 F 87 16 103/65 95 Room Air 07/27/24 00:08 99.0 F 92 H 16 107/67 96 Room Air PG Care Time/CCT Total # of Minutes Spent Total Time Spent with Patient: Total time spent is greater than 50% in coordination of care (as documented) at patient's floor/unit and/or counseling patient: Coding Level of Care Code 96957 Post Operative Follow-Up Diagnoses S/P laparoscopic cholecystectomy Z90.49
--- NOTE | 2024-07-27 12:11 | Discharge Summary ---
Date of Service July 27, 2024 Admission HPI Per Admitting Provider This is a Healthy 28 yr old F who has no significant PMH who presents to ED with epigastic/RUQ pain x 1 day. 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 Shortly after eating her meal she developed epigastric pain radiating to her back, RUQ fullness, nausea and vomiting. She didn't come to the ER last night due to driving all day so she presented this morning. She reports this is her 7th episode in the last year. She previously has been on wegovy and lost a ton of weight. After stopping Wegovy she developed this symptoms along with palpitations and shaking. She continues to feel RUQ fullness and pressure, but feels her pain has improved. SHe is passing gas, but she has not moved her bowels in a few days. Initially she thought maybe she was constipated so she tried drinking milk of mag walking through [employer] last night. She then thought maybe she had the stomach flu. In ED Patient's lab work revealed a significant transaminitis with an AST of 1500 1550 and ALT of 1213, total bili of 3.3 and alk phos of 134. CT scan of abdomen pelvis revealed gallstones but no definitive gallbladder wall thickening or pericholecystic fluid. She underwent right upper quadrant ultrasound and MRCP which was negative for CBD stone but did reveal several gallstones. Admission Exam Per Admitting Provider Constitutional: WD/WN, vitals as above, NAD, sitting up in bed, pleasant, conversing easily Head: Normocephalic, Atraumatic Eyes: PERRL, conjunctivae normal, anicteric sclerae ENMT: external ear and nose normal, oropharynx normal Neck: trachea midline, no thyromegaly normal visual inspection Respiratory: normal respiratory effort, lungs clear to auscultation, no wheeze, rales, rhonchi. Normal insp/exp effort, no accessory muscle use Cardiovascular: RRR, no murmur, no edema Vessels: no JVD or carotid bruit Chest: normal inspection of chest Abdomen: normal bowel sounds, soft, TTP RUQ, no hepatosplenomegaly Musculoskeletal: AROM x 4 Skin: no rashes, warm and dry normal turgor Neurologic: no face palsy, no dysarthria CN's II-XI intact bilaterally and m oves all extremities Psychiatric: A+Ox3, euthymic affect Lymphatic: no cervical or axillary lymphadenopathy : deferred Principal Diagnosis robotic cholecystectomy Discharge Exam GENERAL: Alert and oriented x3. NAD, on RA. HEENT: No pallor, no icterus. Pupils equal, round and reactive to light. Oral mucosa moist. NECK: No JVD, no neck masses. HEART: S1 and S2 heard. Regular rate and rhythm. No murmur, no gallop. RESPIRATORY SYSTEM: Normal AP diameter. No accessory muscle use. No wheezing, no crackles. ABDOMEN: Soft, bowel sounds present, RUQ mild tender, no distention. Surgical wounds w/ dermabond. appears healthy. CENTRAL NERVOUS SYSTEM: No facial droop. Speech is clear. Obeys simple commands. Moves extremities. EXTREMITIES: No edema, no erythema seen. Discharge Data Allergies Allergy/AdvReac Type Severity Reaction Status Date / Time No Known Allergies Allergy Verified 07/25/24 12:49 Consultations 07/25/24 11:51 Consult General Surgery Stat 07/25/24 12:06 ED Decision to Admit Stat Procedures Performed Operation Date: 07/26/24 11:25 Actual Procedures p Robotic Laparoscopic Cholecystectomy(Not Applicable) - Deborah Prabhakar DO Ordered Studies 07/25/24 09:55 CT abd pelvis IV con only Stat 07/25/24 11:52 MR MRCP Stat 07/25/24 11:53 US RUQ [US liver] Stat Hospital Course (1) Cholelithiasis: (2) Elevated LFTs: 28 yr old otherwise healthy female presenting with RUQ Abd pain/fullness that is radiating to her back that started 1 day 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 Had similar episodes 7 x this past year. Admitting imagings: --MRCP:No biliary ductal dilatation. No common bile duct calculi.2. Numerous gallstones within the gallbladder. Mild gallbladder distention. No gallbladder wall thickening or pericholecystic stranding to strongly suggest acute cholecystitis. 3. No MRI evidence for pancreatitis. --US: Cholelithiasis; no secondary findings that are strongly suggestive of cholecystitis. She was managed for the following: Transaminitis Cholelithiasis GB colic Admitting imagings, see above. HCG neg. Admitting LFT: AST 1550 U/L, ALT 1213 U/L, Alk Phos 134 U/L and total bili 3.3 No evidence of obstruction on MRCP, possible passed stone/sludge. LFT elevation iso cholelithiasis/acute gb colic s/p robotic cholecystectomy 07/26, d/w gen sx ok for dc. LFT trending down, repeat LFT in 1week at pcp office, pt advised. Pt tolerating diet, hemodynamically stable and would like to go home. DVT ppx: encourage ambulation FULL CODE PCP: Marleen Lang PA-C Home Health Attestation I certify that this patient is under my care and that I, or a physicians assistant production editor working with me, had a face to-face encounter that meets the home health [id number] encounter requirements with this patient. The encounter with the patient was in whole, or in part, for the following medical condition, which is the primary reason for home health care (list medical condition): I certify that, based on my findings, the following services are medically necessary home health services: My clinical findings support the need for the above services because: Further, I certify that my clinical findings support that this patient is homebound (i.e. absences from home require considerable and taxing effort and are for medical reasons or faith services or infrequently or of short duration when for other reasons) because: Certification for Home Health Services: Based on the above findings, I certify that this patient is confined to the home and needs intermittent chcf care, physical therapy and/or speech therapy or continues to need occupational therapy. The patient is under my care, and I have initiated the establishment of the plan of care. This patient will be followed by a physician who will periodically review the plan of care. Total Time Total Time Spent Total Time Spent (In Minutes): 35 Discharge Plan Discharge Items Patient Disposition: Home - Self-Care Reason For Visit: ELEVATED LFTS, CHOLELITHIASIS, BILIARY COLIC Discharge Diagnosis: robotic cholecystectomy Activity: Per Instructions section Lifting: No more than 10 pounds Bathing Comment: may shower; no soaking in tubs/pools x 2 weeks Exercise/Sports: Wait until after follow-up appointment Driving/Machine Use: no driving while on narcotics for pain Non-emergency contact: Surgeon Call non-emergency contact if: you have any medication questions, your symptoms worsen, your pain is not controlled, your pain is worsening, your pain is unusual for you, you have a fever, your temperature is above 101.5, your wound has increased redness, your wound has increased drainage and your wound pain has increased Follow-up/Referrals: Art Hua [Primary Care Provider] - 07/30/24 2:15 pm Faye-Deborah Prabhakar, DO [Physician] - (Please call to schedule follow up in the office within 2 weeks ) Diet: Regular Addtl Attending Provider Instructions: SPECIAL CARE INSTRUCTIONS: * You have skin glue over your incisions called dermabond. you may shower with this on. It will tend to dissolve and fall off within a couple weeks. Do not pick at the skin glue. * You may shower 07/28 . NO soaking in pools or baths for 2 weeks * No lifting greater than 10lbs. No strenuous exercise until cleared by surgeon. Light walking is accepted. * No driving while taking narcotic pain medication; wait at least 3 days * No drinking alcohol while taking narcotic pain medication * May use Ibuprofen/Tylenol over the counter for pain as tolerated. Do not exce ed 3grams of Tylenol per 24 hours * Expect some swelling and bruising. * Diet- you may resume your regular diet Call your doctor if: * Temperature above 101 degrees, nausea/vomiting, fever/chills * Pain not relieved by pain medicine ordered * There is increased drainage or redness from any incision * You have any unanswered questions or concerns [phone]. FOLLOW UP VISIT: If not already scheduled, please call the office for a follow-up visit. Office Addtl Bone Drier Provider Instructions: Follow-up with your primary care physician within a week time, repeat your liver function test. Coordinate with your primary care physician to set up the test. Pending Studies at Discharge: Yes Studies:: surgical pathology Stand-Alone Forms: My [facility] [employer], Smoking Cessation Medications and DC Order Prescriptions: New oxycodone 5 mg tablet 5 - 10 mg PO .[id number] PRN (Reason: pain, for initial therapy, max 6 tabs per day) Qty: 15 0RF acetaminophen 325 mg Tablet 325 mg PO Q6H PRN (Reason: fever or pain) Qty: 20 0RF ondansetron 4 mg tablet,disintegrating 4 mg PO BID PRN (Reason: nausea and vomiting) Qty: 20 0RF Continued cholecalciferol (vitamin D3) [Vitamin D3] 50 mcg (2,000 unit) Tablet 50 mcg PO DAILY vitamin K2 40 mcg Tablet 40 mcg PO DAILY magnesium glycinate 100 mg magnesium Capsule 100 mg PO HS Discharge Orders: Discharge Order (Routine); Ordered 07/27/24 Ordered By: Dawood Hunter Admission Data Admit Date/Time: 07/25/24 14:06 Attending Provider: Dawood Hunter Admit Provider: Felix Nolasco Primary Care Provider: Art Hua Other Providers: Deborah Jeffers; Felix Nolasco
[2024-07-27 12:19] VITALS: PULSE 77
[2024-07-27] MEDS: PROMETHAZINE 12.5 MG/50.5 ML BAG IV STA (13:17)
[2024-07-28 14:27] LABS: Hepatitis A Antibody IgM NON-REACTIVE (NON-REACTIVE); Hepatitis B Core Antibody IgM NON-REACTIVE (NON-REACTIVE)
== END 2024-07-27 14:52 | disposition home or self-care (01) | DRG 419 ==
LOC: ED 09:43 → EDINP 14:06 → SUATTDRO 14:06 → INTOOBSV 14:06 → 3N 21:19